=== PATIENT | female | born 1955 | race Two or more races ===

== ENCOUNTER → 2019-08-08 | Outpatient (CLI) | payer BC ==
[~2019-08-08] MED LIST: Diethylpropion75 MG PO; Estradiol1 MG PO; Multivitamin1 EAC1; PROG100 PO; PROP120ER PO
== END | disposition home or self-care (01) ==
LOC: LAB SHORT 08:01 → PLD 08:01
DX: N95.0 Postmenopausal bleeding (principal)
CPT/HCPCS: 88305

== ENCOUNTER 2020-10-29 07:22 | Day surgery (SDC) | payer BC ==
[~2020-10-29] VITALS: Ht 160 cm; Wt 116.3 kg
[2020-10-29] MEDS ORDERED: LOSA25 (07:50)
[2020-10-29] MEDS ORDERED: TOPI25C (07:51)
[2020-10-29] MEDS ORDERED: AMPDEX30CR (07:52)
--- NOTE | 2020-10-29 11:04 | NUR ---
10/29/20 1104 [facility] CALLED AND PATIENT WAS HAVING NAUSEA AND VOMITING ONCE THEY GOT HOME. RN STATED SHE WOULD TALK WITH DR. HENRY AND SEE WHAT HE WANTED TO DO FOR THE PATIENT. V.O. RECEIVED FROM DR. HENRY FOR ZOFRAN 4MG ODT 1 TAB EVERY 8HRS PRN NAUSEA WITH A QUANTITY OF 10. RN CALLED RX INTO [facility] FOR PATIENT AND CONTACTED PTS' LETTING HIM KNOW THAT A PRESCRIPTION WAS CALLED IN.
== END 2020-10-29 09:29 | disposition home or self-care (01) ==
LOC: ORSCSDS 07:22
PROVIDERS: Orthopaedic Surgery
PROC: 01N50ZZ Release Median Nerve, Open Approach (ICD-10-PCS; principal; 2020-10-29 08:30)
DX: G56.02 Carpal tunnel syndrome, left upper limb (principal); I10 Essential (primary) hypertension; F41.8 Other specified anxiety disorders; E66.9 Obesity, unspecified; Z68.42 Body mass index [BMI] 45.0-49.9, adult; Z79.899 Other long term (current) drug therapy
CPT/HCPCS: J2250; J2704

== ENCOUNTER 2021-04-14 14:10 | Emergency (ER) | payer BC ==
[~2021-04-14] VITALS: Ht 160 cm; Wt 113.4 kg
[~2021-04-14 14:10] MED LIST changes: +AMPDEX30CR; +LOSA25; +TOPI25C
[2021-04-14 15:41] LABS: BASOPHILS ABSOLUTE AUTO 0.04 K/mm3 (0.00-0.23); BASOPHILS PERCENT AUTO 1 % (0-2); EOSINOPHILS ABSOLUTE AUTO 0.21 K/mm3 (0.00-0.68); EOSINOPHILS PERCENT AUTO 3 % (0-6); Hematocrit 41.8 % (33.0-51.0); Hemoglobin 13.4 g/dL (11.5-16.0); IMMATURE GRAN ABSOLUTE AUTO 0.02 K/mm3 (0.00-0.10); IMMATURE GRAN PERCENT AUTO 0 % (0-1); LYMPHOCYTES ABSOLUTE AUTO 2.02 K/mm3 (0.84-5.20); LYMPHOCYTES PERCENT AUTO 31 % (21-46); MONOCYTES ABSOLUTE AUTO 0.63 K/mm3 (0.16-1.47); MONOCYTES PERCENT AUTO 10 % (4-13); Mean Corpuscular HGB 28.9 pg (26.0-34.0); Mean Corpuscular HGB Conc 32.1 g/dL (31.5-36.5); Mean Corpuscular Volume 90 fL (80-100); Mean Platelet Volume 10.4 fL (9.1-12.4); NEUTROPHILS ABSOLUTE AUTO 3.59 K/mm3 (1.96-9.15); NEUTROPHILS PERCENT AUTO 55 % (41-73); Platelet Count 319 K/mm3 (150-400); RDW Coefficient Variation 13.3 % (11.7-14.2); RDW Standard Deviation 44.1 fL (35.1-46.3); Red Blood Cell Count 4.64 M/mm3 (3.80-5.20); White Blood Cell Count 6.51 K/mm3 (4.00-11.30)
[2021-04-14 15:43] LABS: Alanine Aminotransfer (ALT/SGP 39 U/L (12-78); Alk Phos 153 U/L (50-136); Anion Gap 8 mmol/L (6-16); Aspartate Aminotrans (AST/SGOT 26 U/L (12-37); Bilirubin, Total 0.3 mg/dL (0.1-1.0); Blood Urea Nitrogen 18 mg/dL (8-24); Bun/Creatinine Ratio 26.2 (12.0-20.0); CO2, Blood 22 mmol/L (21-32); Calcium, Blood 9.5 mg/dL (8.5-10.1); Chloride, Blood 109 mmol/L (98-108); Creatinine, Blood 0.69 mg/dL (0.40-1.00); Globulin, Blood 3.9 g/dL (2.2-4.0); Glomerular Filtration Rate >60 (60-); Glucose, Blood 107 mg/dL (70-99); Potassium, Blood 3.7 mmol/L (3.5-5.5); Sodium, Blood 139 mmol/L (136-145); Total Protein, Blood 7.9 g/dL (6.4-8.2)
== END 2021-04-14 18:28 | disposition home or self-care (01) ==
LOC: ER 14:10
PROVIDERS: Physician Assistant
DX: K62.5 Hemorrhage of anus and rectum (principal); I10 Essential (primary) hypertension; Z79.899 Other long term (current) drug therapy; Z88.8 Allergy status to other drugs, medicaments and biological substances; Z91.048 Other nonmedicinal substance allergy status
CPT/HCPCS: 36415; 74176; 80053; 82272; 85025; 86850; 86900; 86901; 93005; 93010; 99284-25; J7030

== ENCOUNTER → 2021-05-17 | Outpatient (CLI) | payer BC ==
[2021-05-21 10:51] LABS: Stool Occult Bld Immuno 1 Negative (NEGATIVE)
== END | disposition home or self-care (01) ==
LOC: LAB 12:45 → LAB SHORT 12:45
PROVIDERS: Family Medicine
DX: R82.90 Unspecified abnormal findings in urine (principal)
CPT/HCPCS: G0328

== ENCOUNTER → 2021-07-07 | Outpatient (CLI) | payer BC | END | disposition home or self-care (01) | LOC: LAB SHORT 15:27 → LAB 15:27 | DX: R82.90 Unspecified abnormal findings in urine (principal) | CPT/HCPCS: 87077; 87086; 87186 ==

== ENCOUNTER → 2022-01-16 | Outpatient (CLI) | payer BC ==
[2022-01-16 15:56] LABS: Source, Urine Voided
[2022-01-16 17:41] LABS: Bacteria Few /hpf; Red Blood Cells, Urine 0-2 /hpf (0-2); Squamous Epithelial Cells Mod /hpf (Few); White Blood Cells, Urine 0-2 /hpf (0-5)
== END | disposition home or self-care (01) ==
LOC: LAB 15:49 → LAB SHORT 15:49
PROVIDERS: Family Medicine
DX: R82.90 Unspecified abnormal findings in urine (principal)
CPT/HCPCS: 81015; 87086

== ENCOUNTER 2024-06-14 08:59 | Day surgery (SDC) | payer MEDICARE, BC ==
[2024-06-14] VITALS (17 sets, daily range): BP systolic 97–120; BP diastolic 52–70
[~2024-06-14] VITALS: Ht 160 cm; Wt 99.2 kg
[~2024-06-14 08:59] MED LIST changes: +ALBU90OI INH; +ATOMOXETINE HCL80 M1 PO; +Acetaminophen 500 MG Tab PO SCH; +BUPROPION XL150 M1 PO; +Bupivacaine 0.5% Inj 10 ML Vial ONE; +CeFAZolin Sodium 2,000 MG VIAL ONE; +CeFAZolin Sodium 2,000 MG in NS 100 ML IV SCH; +Chlorhexidine Mouth Care 15 ML UDC MT SCH; +ELIQUIS2.5 MG PO; +LOSA25 PO; +Lactated Ringer's 1,000 ML IV SCH; +OZEMPIC0.25 MG/02 SC; +OxyCODONE HCL 10 MG TABCR PO SCH; +Ropivacaine 0.5% HCl/Pf 123.125 MG,EPINEPHrine HCL 0.25 MG,Ketorolac Tromethamine 15 MG... INFIL SCH; +Tranexamic Acid 100 ML IV SCH; +Vancomycin HCL 1,000 MG in NS 250 ML IV SCH; +Voltaren100 GM TOP; +propofoL 100 ML IV ONE
[2024-06-14] MEDS ORDERED: propofoL 20 ML IV ONE (09:04)
[2024-06-14] MEDS ORDERED: Ondansetron HCl 2 MG / ML 2ML Vial ONE (09:21)
[2024-06-14] MEDS ORDERED: Ketorolac Tromethamine 30mg Vial ONE (09:21)
[2024-06-14] MEDS ORDERED: Dexamethasone Sod Phos 10 MG/ML 1ML VIAL ONE (09:21)
[2024-06-14] MEDS ORDERED: FentaNYL Citrate 50 MCG/ML 2 ML Injection ONE (09:21)
--- NOTE | 2024-06-14 09:40 | NUR ---
Ambulatory in Day Surgery History, Chart, Medications and Allergies reviewed before start of procedure. Pre-Op teaching done. Pt verbalizes understanding.
[2024-06-14] MEDS ORDERED: Vancomycin HCl 1000 MG ADDvantage ONE (10:21)
[2024-06-14] MEDS ORDERED: Metoclopramide HCl 5MG / ML 2ML Vial IV PRN (10:40)
[2024-06-14] MEDS ORDERED: OxyCODONE HCL 5 MG TAB PO PRN ×2 (10:40)
[2024-06-14] MEDS ORDERED: Ondansetron HCl 2 MG / ML 2ML Vial IV PRN (10:40)
[2024-06-14] MEDS ORDERED: Promethazine HCl 25 MG Tab PO PRN (10:40)
[2024-06-14] MEDS ORDERED: ePHEDrine Sulfate 50 MG/ML 1ML Injection ONE (10:44)
[2024-06-14] MEDS ORDERED: HYDROmorphone HCl/Pf 1MG SYR IV PRN ×2 (10:45→11:35)
[2024-06-14] MEDS ORDERED: Magnesium Hydroxide Conc 10 ML UDC PO PRN (10:45)
[2024-06-14] MEDS ORDERED: Lactated Ringer's 1,000 ML IV SCH (10:45)
[2024-06-14] MEDS ORDERED: Bisacodyl 10 MG Supp PR PRN (10:45)
[2024-06-14] MEDS ORDERED: DiphenhydrAMINE HCL 25 MG Cap PO PRN (10:45)
[2024-06-14] MEDS ORDERED: Phenylephrine HCl 100 MCG/ML-NS 10MLSYR (1MG/10ML) ONE (10:47)
[2024-06-14] MEDS ORDERED: Albuterol HFA200 ACT/6.7 GM INH INH PRN (11:00)
[2024-06-14] MEDS ORDERED: Vasopressin 20 UNITS/ML 1ML Vial ONE ×2 (11:02→14:58)
[2024-06-14] MEDS ORDERED: Glycopyrrolate 0.2 MG/ML 5ML VIAL ONE (11:14)
[2024-06-14] MEDS ORDERED: Albuterol 2.5 MG/3 ML VIAL INH PRN (11:30)
[2024-06-14] MEDS ORDERED: FentaNYL Citrate 50 MCG/ML 2 ML Injection IV PRN ×2 (11:30)
--- NOTE | 2024-06-14 13:20 | NUR ---
POST OP ARRIVAL TO SURGICAL UNIT VIA HOSPITAL BED. ALERT, ORIENTED, & PLEASANT. LUNGS CLEAR & HRR. L KNEE w/ JV WRAP & TELFA/TEGADERM. NO DRNG NOTED. PPP & UNABLE TO WIGGLE TOES R/T SPINAL. DENIES PAIN. CRYOTHERAPY IN USE. DENIES N/V; SNACKS & DRINKS GIVEN. SPOUSE TO SIDE.
[2024-06-14] MEDS ORDERED: Acetaminophen 500 MG Tab PO SCH (16:00)
[2024-06-14] MEDS ORDERED: Ketorolac Tromethamine 15mg Vial IV SCH (18:00)
[2024-06-14] MEDS ORDERED: CeFAZolin Sodium 2,000 MG in NS 100 ML IV SCH (18:45)
--- NOTE | 2024-06-14 19:59 | NUR ---
SHIFT SUMMARY ALTHOUGH PT BECAME VERY NAUSEATED APPROX AN HOUR AFTER ARRIVAL, IS DOING BETTER NOW. WAS ABLE TO EAT ALL OF DINNER & FEELS MUCH BETTER POST PHENERGAN ADMIN. WAS ABLE TO VOID, BUT HAD TO USE BEDPAN PT WASN'T ABLE TO LIFT SURGICAL LEG. IVF CONTINUE TO INFUSE.
[2024-06-14] MEDS ORDERED: Losartan Potassium 25 MG Tab PO SCH (21:00)
[2024-06-14] MEDS ORDERED: Propranolol HCL 60 MG CAPCR PO SCH (21:00)
[2024-06-14] MEDS ORDERED: Docusate Sodium 100 MG Cap PO SCH (21:00)
[2024-06-14] MEDS ORDERED: Vancomycin HCL 1,000 MG in NS 250 ML IV SCH (21:30)
[2024-06-15] VITALS (7 sets, daily range): BP systolic 83–116; BP diastolic 52–66
--- NOTE | 2024-06-15 06:05 | NUR ---
SHIFT SUMMARY BRODY WAS DROWSY BUT AWAKE AND FULLY ORIENTED ON ASSESSMENT. JV DRESSING TO L KNEE C/D/I, DISTAL CIRCULATION AND SENSATION INTACT. PT ABLE TO PRODUCE POST OP VOID. PT DECLINED GETTING OOB EARLY IN SHIFT, BUT AGREED TO AMBULATE TO BR FOR NEXT VOID. PAIN WELL MANAGED. PT AMBULATED TO BR AND HAD A BM WHERE PT REPORTS FEELING DIZZY, PT RETURNED TO BED AND VITALS TAKEN. PT WAS HYPOTENSIVE, SUSPECTED VASOVEGAL, REPEAT B/P MUCH BETTER WITH IMPROVEMENT OF DIZZINESS, CONTINUING TO MONITOR
[2024-06-15 06:18] LABS: BASOPHILS ABSOLUTE AUTO 0.02 K/mm3 (0.00-0.23); BASOPHILS PERCENT AUTO 0 % (0-2); EOSINOPHILS PERCENT AUTO 0 % (0-6); Hematocrit 32.8 % (33.0-51.0); Hemoglobin 10.7 g/dL (11.5-16.0); IMMATURE GRAN ABSOLUTE AUTO 0.08 K/mm3 (0.00-0.10); IMMATURE GRAN PERCENT AUTO 1 % (0-1); LYMPHOCYTES ABSOLUTE AUTO 1.48 K/mm3 (0.84-5.20); LYMPHOCYTES PERCENT AUTO 11 % (21-46); MONOCYTES ABSOLUTE AUTO 1.01 K/mm3 (0.16-1.47); MONOCYTES PERCENT AUTO 8 % (4-13); Mean Corpuscular HGB 29.5 pg (26.0-34.0); Mean Corpuscular HGB Conc 32.6 g/dL (31.5-36.5); Mean Corpuscular Volume 90 fL (80-100); Mean Platelet Volume 10.8 fL (9.1-12.4); NEUTROPHILS ABSOLUTE AUTO 10.62 K/mm3 (1.96-9.15); NEUTROPHILS PERCENT AUTO 80 % (41-73); Platelet Count 284 K/mm3 (150-400); RDW Coefficient Variation 13.3 % (11.7-14.2); RDW Standard Deviation 44.4 fL (35.1-46.3); Red Blood Cell Count 3.63 M/mm3 (3.80-5.20); White Blood Cell Count 13.21 K/mm3 (4.00-11.30)
[2024-06-15 06:37] LABS: Bun/Creatinine Ratio 27.5 (12.0-20.0); Calcium, Blood 8.6 mg/dL (8.5-10.1); Creatinine, Blood 0.73 mg/dL (0.40-1.00); Magnesium, Blood 1.9 mg/dL (1.6-2.4); Potassium, Blood 4.3 mmol/L (3.5-5.5)
[2024-06-15] MEDS ORDERED: ONDA4ODT SL (08:53)
[2024-06-15] MEDS ORDERED: SULTRIDS PO (08:54)
[2024-06-15] MEDS ORDERED: OXAYDO5 M1 PO (08:54)
[2024-06-15] MEDS ORDERED: buPROPion HCL 150 MG TAB.SR.12H PO SCH (09:00)
[2024-06-15] MEDS ORDERED: Trimethoprim/Sulfamethoxazole DS Tab PO SCH (09:00)
[2024-06-15] MEDS ORDERED: ATOMOXETINE HCL 10 MG PO SCH (09:00)
[2024-06-15] MEDS ORDERED: Lactated Ringer's 500 ML IV ONE (12:20)
--- NOTE | 2024-06-15 14:58 | NUR ---
DISCHARGE DR. LE NOTIFIED OF CURRENT VS AND URINE OUPUT. TELEPHONE ORDER TO DISCHARGE HOME. PT AND EDUCATED ON AND RECEIVED PRINTED DISCHARGE INSTRUCTIONS AND VERBALIZED AN UNDERSTANDING. PT REPORTS FILLING RX'S PRIOR TO SURGERY. IV DC'D. PT LEFT WITH ALL PERSONAL BELONGINGS AND ESCORTED OUT TO VEHICLE VIA W/C.
[2024-06-15] MEDS ORDERED: Apixaban 5 MG Tab PO SCH (21:00)
== END 2024-06-15 14:58 | disposition home or self-care (01) ==
LOC: ORSCMMR 08:59 → ORD 11:00 → ORSCMMR 11:00 → SURS 13:08 → ORSCMMR 06-15 14:58
PROVIDERS: Orthopaedic Surgery
PROC: 0SRD0JA Replacement of Left Knee Joint with Synthetic Substitute, Uncemented, Open Approach (ICD-10-PCS; principal; 2024-06-14 11:00)
DX: M17.12 Unilateral primary osteoarthritis, left knee (principal); I10 Essential (primary) hypertension; Z86.718 Personal history of other venous thrombosis and embolism; Z79.01 Long term (current) use of anticoagulants; J45.909 Unspecified asthma, uncomplicated; F41.9 Anxiety disorder, unspecified; F32.A Depression, unspecified; F90.9 Attention-deficit hyperactivity disorder, unspecified type; E66.9 Obesity, unspecified; Z68.38 Body mass index [BMI] 38.0-38.9, adult; Z79.899 Other long term (current) drug therapy
CPT/HCPCS: 36415; 73560-LT; 80048; 83735; 85025; 94760; 97110; 97112; 97116; 97161; 97530; A9270; C1713; C1776; J0171; J0690; J0735; J1100; J1885; J2371; J2405; J2704; J2795; J3010; J3370; J7050; J7120